=== PATIENT | female | born 1960 | race African-American/Black ===

== ENCOUNTER 2023-12-24 16:19 | Inpatient (IN) | payer OTHER ==
[2023-12-24] MEDS ORDERED: guaiFENesin 600 MG TABLET.ER (FP) PO PRN (18:55)
[2023-12-24] MEDS ORDERED: MAGNESIUM HYDROX 2400MG/30ML ORAL SUSPENSION 30 ML CUP PO PRN (18:55)
[2023-12-24] MEDS ORDERED: NALOXONE (NARCAN) HCL 4 MG/0.1 ML SPRAY NS PRN (18:55)
[2023-12-24] MEDS ORDERED: POLYETHYLENE GLYCOL (HEALTHYLAX) 3350 17 GM PACKET PO PRN (18:55)
[2023-12-24] MEDS ORDERED: LOPERAMIDE HCL 2 MG CAPSULE PO PRN (18:55)
[2023-12-24] MEDS ORDERED: MAG HYDROX/AL HYDROX/SIMETH 30 ML UNIT-DOSE CUP PO PRN (18:55)
[2023-12-24] MEDS ORDERED: BENZOCAINE/MENTHOL (CHLORASEPTIC ) LOZENGE MM PRN (18:55)
[2023-12-24] MEDS ORDERED: BENZONATATE 200 MG CAPSULE PO PRN (18:55)
[2023-12-24] MEDS ORDERED: ALBUTEROL SO4 HFA INHALER IH PRN (18:57)
[2023-12-24] MEDS: IBUPROFEN 600 MG TABLET (FP) PO PRN (19:49)
[2023-12-24] MEDS: TUBERCULIN PPD 5 TU/0.1ML SYRINGE (IN PATIENT USE ONLY) ID ONE (19:50)
[2023-12-24] MEDS: cloNIDine HCL 0.1 MG TABLET PO ONE (20:18)
[2023-12-24] MEDS: MELATONIN 5 MG TABLETS PO SCH (22:34)
[2023-12-24] MEDS: THIAMINE 100 MG TABLET PO SCH (22:34)
[2023-12-24] MEDS: hydrOXYzine PAMOATE 25 MG CAPSULE (FP) PO PRN (22:34)
[2023-12-25] MEDS: PRENATAL VITAMINS W/ FOLIC ACID TABLET (FP) PO SCH (10:34)
[2023-12-25 14:36] LABS: HEMATOCRIT 41.7 % (32.4-45.2); HEMOGLOBIN 14.3 GM/dL (10.7-15.3); MCH 29.9 pg (25.7-33.7); MCHC 34.3 g/dl (32.0-36.0); MEAN CELL VOLUME 87.3 fl (80-96); MEAN PLT VOLUME 6.8 fl (7.5-11.1); PLATELET COUNT 347 10^3/uL (134-434); RBC 4.78 M/mm3 (3.60-5.2); RDW 13.6 % (11.6-15.6); WHITE BLOOD COUNT 3.4 K/mm3 (4.0-10.0)
[2023-12-25 14:40] LABS: POTASSIUM 4.1 mmol/L (3.5-5.1)
[2023-12-25 14:47] LABS: CALCIUM 9.2 mg/dL (8.5-10.1)
[2023-12-25 14:48] LABS: ALBUMIN 3.2 g/dl (3.4-5.0)
[2023-12-25 14:51] LABS: CREATININE 0.7 mg/dL (0.55-1.3)
[2023-12-25 14:53] LABS: BILIRUBIN,TOTAL 0.4 mg/dL (0.2-1); TOT PROT 6.9 g/dl (6.4-8.2)
[2023-12-25 21:03] LABS: PH,URINE 5.5 (5.0-8.0); URINE APPEARANCE CLEAR; URINE BILIRUBIN NEGATIVE (NEGATIVE); URINE COLOR YELLOW; URINE GLUCOSE (UA) NEGATIVE (NEGATIVE); URINE KETONE NEGATIVE (NEGATIVE); URINE LEUK ESTERASE NEGATIVE (NEGATIVE); URINE NITRITE NEGATIVE (NEGATIVE); URINE PROTEIN NEGATIVE (NEGATIVE); URINE UROBILINOGEN 0.2 mg/dL (0.2-1.0)
[2023-12-28] MEDS ORDERED: AMMONIUM LACTATE 12% LOTION 225 GM BOTTLE TP PRN (12:48)
[2023-12-28] MEDS: BACLOFEN 10 MG TABLET (FP) PO SCH (13:38)
[2023-12-28] MEDS: GABAPENTIN 100 MG CAPSULE PO SCH (13:38)
[2023-12-28] MEDS: DOXYCYCLINE HYCLATE 100 MG TABLET PO SCH (17:11)
[2023-12-28] MEDS: BENZOCAINE 20 % GEL TUBE MM PRN (21:21)
[2023-12-29 14:23] LABS: HIV INTERPRETATION NEGATIVE (NEGATIVE)
[2023-12-29] MEDS: ACETAMINOPHEN 325 MG TABLET (FP) PO PRN (21:25)
[2023-12-30] MEDS: LACTULOSE 20 GM/30 ML UDC (FOR ORAL USE ONLY) PO SCH (16:27)
[2023-12-30] MEDS: CHOLECALCIFEROL (VIT D3) 400 UNIT (10 MCG) TABLET PO SCH (16:27)
[2023-12-30] MEDS: amLODIPine BESYLATE 2.5 MG TABLET (FP) PO SCH (16:27)
[2023-12-30] MEDS: GABAPENTIN 400 MG CAPSULE PO SCH (21:37)
[2023-12-30] MEDS: BACLOFEN 10 MG TABLET (FP) PO SCH (21:37)
[2024-01-01] MEDS: MELATONIN 5 MG TABLETS PO ONE (01:37)
[2024-01-01] MEDS: amLODIPine BESYLATE 5 MG TABLET (FP) PO SCH (09:56)
[2024-01-02] MEDS: IBUPROFEN 400 MG TABLET (FP) PO PRN (01:12)
[2024-01-02] MEDS: AMMONIUM LACTATE 12% LOTION 225 GM BOTTLE TP SCH (15:56)
[2024-01-02] MEDS: LIDOCAINE 5% TOPICAL PATCH TP SCH (15:58)
[2024-01-02] MEDS: VITAMINS A AND D TOPICAL OINTMENT TP SCH (17:45)
[2024-01-02] MEDS: SUVOREXANT 10 MG TABLET PO PRN (21:15)
[2024-01-02] MEDS: LIDOCAINE PATCH REMOVAL MC SCH (22:44)
[2024-01-03] MEDS: amLODIPine BESYLATE 10 MG TABLET (FP) PO SCH (10:24)
[2024-01-04] MEDS: NAPROXEN 375 MG TABLET PO PRN (10:06)
[2024-01-04] MEDS: FLUCONAZOLE 50 MG TABLET PO ONE (16:31)
[2024-01-05 06:53] VITALS: RESP 18
[2024-01-05] MEDS ORDERED: VITAMINS A AND D TOPICAL OINTMENT TP PRN (14:01)
[2024-01-06 06:33] VITALS: BP 132/74; PULSE 79; TEMP 97.6
[2024-01-06] MEDS: NALOXONE (NYS OPIOID OVERDOSE PROGRAM) 4 MG/0.1 ML SPRAY NS PRN (09:39)
== END 2024-01-06 10:35 | disposition home or self-care (01) | DRG 772 ==
LOC: YASAS 16:19 → Y3NR 19:06 → Y5N 12-25 12:31
PROVIDERS: ADMIT Allergy & Immunology; ATTEND Psychiatry & Neurology Pain Medicine
PROC: HZ42ZZZ Group Counseling for Substance Abuse Treatment, Cognitive-Behavioral (ICD-10-PCS; principal; 2023-12-24)
DX: F10.20 Alcohol dependence, uncomplicated (principal); F14.20 Cocaine dependence, uncomplicated; F19.282 Other psychoactive substance dependence with psychoactive substance-induced sleep disorder; E72.20 Disorder of urea cycle metabolism, unspecified; E11.59 Type 2 diabetes mellitus with other circulatory complications; I10 Essential (primary) hypertension; J45.20 Mild intermittent asthma, uncomplicated; K02.9 Dental caries, unspecified; L85.3 Xerosis cutis; M54.50 Low back pain, unspecified; G89.29 Other chronic pain; N76.0 Acute vaginitis; Z86.19 Personal history of other infectious and parasitic diseases
CPT/HCPCS: 36415; 80053; 80305; 81003; 82140; 82652; 82962; 83036; 83735; 85027; 86593; 86780; 86803; 87389; 87811; 93005; 93010; J0475